=== PATIENT | male | born 1965 | race Two or more races ===

== ENCOUNTER 2018-06-19 09:55 | Inpatient (IN) | payer OTHER ==
[2018-06-19 10:17] VITALS: BMI 30.1
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
[2018-06-19] MEDS ORDERED: MAGNESIUM HYDROX 2400MG/30ML ORAL SUSPENSION 30 ML CUP PO PRN (11:52)
[2018-06-19] MEDS ORDERED: diazePAM 5 MG TABLET PO PRN (11:52)
[2018-06-19] MEDS ORDERED: P-EPHED 60MG/TRIPROLIDI 2.5MG TABLET PO PRN (11:52)
[2018-06-19] MEDS ORDERED: IBUPROFEN 400 MG TABLET (FP) PO PRN (11:52)
[2018-06-19] MEDS ORDERED: MAG HYDROX/AL HYDROX/SIMETH 30 ML UNIT-DOSE CUP PO PRN (11:52)
[2018-06-19] MEDS ORDERED: MAGNESIUM CITRATE 300 ML BOTTLE PO PRN (11:52)
[2018-06-19] MEDS ORDERED: NICOTINE POLACRILEX 2 MG GUM BUC PRN (11:52)
[2018-06-19] MEDS ORDERED: ACETAMINOPHEN 325 MG TABLET (FP) PO PRN (11:52)
[2018-06-19] MEDS ORDERED: MENTHOL/PHENOL 1 EACH UD MM PRN (11:52)
[2018-06-19] MEDS: diazePAM 5 MG TABLET PO SCH ×2 (13:22→22:24)
[2018-06-19] MEDS: THIAMINE HCL 100 MG TABLET (FP) PO SCH (22:24)
[2018-06-19] MEDS: MELATONIN 5 MG TABLETS PO PRN (22:25)
[2018-06-20] MEDS: diazePAM 5 MG TABLET PO SCH ×3 (05:55→22:12)
[2018-06-20] MEDS ORDERED: RITONAVIR 100 MG TABLET PO SCH (08:00)
[2018-06-20] MEDS ORDERED: ATAZANAVIR SO4 300 MG CAPSULE PO SCH (08:00)
[2018-06-20] MEDS: PRENATAL VITAMINS W/ FOLIC ACID TABLET (FP) PO SCH (10:10)
[2018-06-20] MEDS: BUDESONIDE/FORMETEROL FUMARATE 160/4.5 mcg INHALER IH SCH ×2 (10:11→22:25)
[2018-06-20 11:09] LABS: HEMATOCRIT 45.7 % (35.4-49); HEMOGLOBIN 14.4 GM/dL (11.7-16.9); MCH 28.9 pg (25.7-33.7); MCHC 31.5 g/dl (32.0-35.9); MEAN CELL VOLUME 91.8 fl (80-96); MEAN PLT VOLUME 7.9 fl (7.5-11.1); PLATELET COUNT 309 K/MM3 (134-434); RBC 4.98 M/mm3 (4.00-5.60); RDW 13.4 % (11.9-15.9); WHITE BLOOD COUNT 8.7 K/mm3 (4.0-10.0)
--- NOTE | 2018-06-20 11:20 | PN ---
S CIWA - CIWA Score Nausea/Vomitin-No Nausea/No Vomiting Muscle Tremors: 4-Moderate,w/Arms Extend Anxiety: 4-Mod. Anxious/Guarded Agitation: 4-Moderately Restless Paroxysmal Sweats: 1-Minimal Palms Moist Orientation: 0-Oriented Tacttile Disturbances: 0-None Auditory Disturbances: 0-None Visual Disturbances: 0-None Headache: 0-None Present CIWA-Ar Total Score: 13 BHS Progress Note (SOAP) Subjective: ANXIETY, IRRITABILITY, COUGHING, DENIES SORE THROAT INTERMITTENT SLEEP. Objective: 06/20/18 11:50 Vital Signs 06/20/18 06:16 Temperature 96.9 F L Pulse Rate 75 Respiratory 18 Rate Blood Pressure 99/59 L Laboratory Tests 06/20/18 05:35 WBC 8.7 RBC 4.98 Hgb 14.4 Hct 45.7 MCV 91.8 MCH 28.9 MCHC 31.5 L RDW 13.4 Plt Count 309 MPV 7.9 OTHER LABS PENDING Assessment: 06/20/18 11:51 WITHDRAWAL SX Plan: CONTINUE DETOX INCREASE PO FLUIDS ROBITUSSIN DM PRN DIRECTED
[2018-06-20 11:54] LABS: ALBUMIN 3.5 g/dl (3.4-5.0); ALK PHOS 80 U/L (45-117); ANION GAP 9 MMOL/L (8-16); BILIRUBIN,TOTAL 0.4 mg/dL (0.2-1); BLOOD UREA NITROGEN 9 mg/dL (7-18); CHLORIDE 104 mmol/L (98-107); CO2 27 mmol/L (21-32); CREATININE 1.1 mg/dL (0.55-1.3); GLUCOSE,RANDOM 76 mg/dL (74-106); POTASSIUM 3.8 mmol/L (3.5-5.1); SGOT/AST 34 U/L (15-37); SGPT/ALT 46 U/L (13-61); SODIUM 140 mmol/L (136-145); TOT PROT 7.5 g/dl (6.4-8.2)
[2018-06-20] MEDS ORDERED: FLU VACCINE QUAD 60 MCG/0.5 ML (MDV 18-19) IM ONE (12:00)
[2018-06-20] MEDS ORDERED: PNEUMOC 13-VAL CONJ-DIP CRM/PF 0.5 ML DISP.SYRIN IM ONE (12:00)
[2018-06-20] MEDS: MELATONIN 5 MG TABLETS PO PRN (22:12)
[2018-06-20] MEDS: THIAMINE HCL 100 MG TABLET (FP) PO SCH (22:12)
[2018-06-21] MEDS: guaiFENesin/D-METHORPHAN HB 10 ML UNIT-DOSE CUPS PO PRN ×3 (09:45→22:24)
[2018-06-21] MEDS: PRENATAL VITAMINS W/ FOLIC ACID TABLET (FP) PO SCH (10:11)
[2018-06-21] MEDS: diazePAM 5 MG TABLET PO SCH ×2 (10:11→22:22)
[2018-06-21] MEDS: BUDESONIDE/FORMETEROL FUMARATE 160/4.5 mcg INHALER IH SCH (10:11)
[2018-06-21] MEDS ORDERED: ALBUTEROL SO4 8 GM HFA INHALER IH PRN (14:50)
[2018-06-21] MEDS ORDERED: ALBUTEROL SO4 0.083% IH SOL 2.5 MG/3 ML VIAL.NEB. NEB PRN (14:53)
--- NOTE | 2018-06-21 15:00 | PN ---
[facility] CIWA - CIWA Score Nausea/Vomitin Muscle Tremors: 3 Anxiety: 3 Agitation: 3 Paroxysmal Sweats: 3 Orientation: 0-Oriented Tacttile Disturbances: 0-None Auditory Disturbances: 0-None Visual Disturbances: 0-None Headache: 0-None Present CIWA-Ar Total Score: 14 BHS Progress Note (SOAP) Subjective: Anxious, restless, interrupted sleep. As per patient, he brought his antiretroviral medications (ritonavir and reyataz) here with him to detox and did not receive any for two days and would like to resume taking his medication. Objective: 06/21/18 14:55 Last Vital Signs Temp Pulse Resp BP Pulse Ox 97.8 F 72 16 99/61 06/20/18 21:01 06/21/18 06:59 06/21/18 06:59 06/21/18 06:59 Laboratory Tests 06/20/18 06/20/18 06/20/18 05:35 05:35 05:35 WBC 8.7 RBC 4.98 Hgb 14.4 Hct 45.7 MCV 91.8 MCH 28.9 MCHC 31.5 L RDW 13.4 Plt Count 309 MPV 7.9 Sodium 140 Potassium 3.8 Chloride 104 Carbon Dioxide 27 Anion Gap 9 BUN 9 Creatinine 1.1 Creat Clearance w eGFR > 60 Random Glucose 76 Calcium 9.0 Total Bilirubin 0.4 AST 34 ALT 46 Alkaline Phosphatase 80 Total Protein 7.5 Albumin 3.5 RPR Titer Nonreactive Labs reviewed Assessment: 06/21/18 14:55 Withdrawal symptoms Plan: Continue detox Encouraged PO water intake Ritonavir 100mg PO daily and atazanavir (reyataz) 300mg PO daily resumed ( budesonide/formeterol inhaler d/c due to reaction with antiretroviral, ordered for albuterol mdi and nebulizer prn)
[2018-06-21] MEDS: ATAZANAVIR SO4 300 MG CAPSULE PO SCH (18:20)
[2018-06-21] MEDS: RITONAVIR 100 MG TABLET PO SCH (18:22)
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
[2018-06-21] MEDS: THIAMINE HCL 100 MG TABLET (FP) PO SCH (22:22)
[2018-06-22] MEDS: guaiFENesin/D-METHORPHAN HB 10 ML UNIT-DOSE CUPS PO PRN (05:30)
[2018-06-22] MEDS: diazePAM 5 MG TABLET PO SCH ×2 (10:36→22:16)
[2018-06-22] MEDS: RITONAVIR 100 MG TABLET PO SCH (10:36)
[2018-06-22] MEDS: ATAZANAVIR SO4 300 MG CAPSULE PO SCH (10:36)
[2018-06-22] MEDS: PRENATAL VITAMINS W/ FOLIC ACID TABLET (FP) PO SCH (10:36)
[2018-06-22] MEDS ORDERED: EMTRICITABINE 200MG/TENOFOVIR 300MG PO ONE (11:30)
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
[2018-06-22] MEDS: THIAMINE HCL 100 MG TABLET (FP) PO SCH (22:15)
[2018-06-23] MEDS ORDERED: EMTRICITABINE 200MG/TENOFOVIR 300MG PO SCH (08:00)
--- NOTE | 2018-06-23 08:44 | DS ---
[facility] Detox Discharge Summary Admission Date: 06/19/18 Discharge Date: 06/23/18 - History Present History: Alcohol Dependence, Sedative Dependence - Physical Exam Results Vital Signs: Vital Signs Temperature 98.0 F 06/23/18 06:22 Pulse Rate 99 H 06/23/18 06:22 Respiratory Rate 18 06/23/18 06:30 Blood Pressure 116/73 06/23/18 06:22 O2 Sat by Pulse Oximetry (%) Pertinent Admission Physical Exam Findings: benzo withdrawal sx Laboratory Last Values WBC 8.7 K/mm3 (4.0-10.0) 06/20/18 05:35 RBC 4.98 M/mm3 (4.00-5.60) 06/20/18 05:35 Hgb 14.4 GM/dL (11.7-16.9) 06/20/18 05:35 Hct 45.7 % (35.4-49) 06/20/18 05:35 MCV 91.8 fl (80-96) 06/20/18 05:35 MCH 28.9 pg (25.7-33.7) 06/20/18 05:35 MCHC 31.5 g/dl (32.0-35.9) L 06/20/18 05:35 RDW 13.4 % (11.9-15.9) 06/20/18 05:35 Plt Count 309 K/MM3 (134-434) 06/20/18 05:35 MPV 7.9 fl (7.5-11.1) 06/20/18 05:35 Sodium 140 mmol/L (136-145) 06/20/18 05:35 Potassium 3.8 mmol/L (3.5-5.1) 06/20/18 05:35 Chloride 104 mmol/L (98-107) 06/20/18 05:35 Carbon Dioxide 27 mmol/L (21-32) 06/20/18 05:35 Anion Gap 9 MMOL/L (8-16) 06/20/18 05:35 BUN 9 mg/dL (7-18) 06/20/18 05:35 Creatinine 1.1 mg/dL (0.55-1.3) 06/20/18 05:35 Creat Clearance w eGFR > 60 (>60) 06/20/18 05:35 Random Glucose 76 mg/dL (74-106) 06/20/18 05:35 Calcium 9.0 mg/dL (8.5-10.1) 06/20/18 05:35 Total Bilirubin 0.4 mg/dL (0.2-1) 06/20/18 05:35 AST 34 U/L (15-37) 06/20/18 05:35 ALT 46 U/L (13-61) 06/20/18 05:35 Alkaline Phosphatase 80 U/L (45-117) 06/20/18 05:35 Total Protein 7.5 g/dl (6.4-8.2) 06/20/18 05:35 Albumin 3.5 g/dl (3.4-5.0) 06/20/18 05:35 RPR Titer Nonreactive (NONREACTIVE) 06/20/18 05:35 lab noted - Treatment Hospital Course: Detox Protocol Followed, Detoxed Safely, Responded well, Discharged Condition Good, Rehab Referral Accepted Patient has Accepted [facility] - Medication Discharge Medications: Ambulatory Orders Atazanavir [Reyataz -] 300 mg PO DAILY@0800 06/19/18 Ritonavir 100 mg PO DAILY 06/19/18 Albuterol Sulfate Inhaler - [Ventolin HFA Inhaler -] 2 puff IH Q4H PRN #1 inhaler 06/22/18 Budesonide/Formeterol Fumarate [SYMBICORT 160/4.5mcg -] 1 puff PO DAILY #1 inhaler 06/22/18 Emtricitabine/Tenofovir [Truvada -] 1 tab PO DAILY 06/22/18 - Diagnosis (1) Alcohol dependence with uncomplicated withdrawal Status: Acute (2) Asthma Status: Chronic Qualifiers: Asthma severity: mild Asthma persistence: intermittent Asthma complication type: uncomplicated Qualified Code(s): J45.20 - Mild intermittent asthma, uncomplicated (3) HIV (human immunodeficiency virus infection) Status: Chronic (4) Nicotine dependence Status: Acute Qualifiers: Nicotine product type: cigarettes Substance use status: in withdrawal Qualified Code(s): F17.213 - Nicotine dependence, cigarettes, with withdrawal - AMA Did Patient Leave Against Medical Advice: No
[2018-06-23] MEDS: ATAZANAVIR SO4 300 MG CAPSULE PO SCH (08:54)
[2018-06-23] MEDS: RITONAVIR 100 MG TABLET PO SCH (08:54)
[2018-06-23 09:35] VITALS: BP 129/76; PULSE 96; TEMP 96.5
[2018-06-23] MEDS ORDERED: diazePAM 5 MG TABLET PO SCH (10:00)
[2018-06-23] MEDS: guaiFENesin/D-METHORPHAN HB 10 ML UNIT-DOSE CUPS PO PRN (10:17)
[2018-06-23] MEDS: PRENATAL VITAMINS W/ FOLIC ACID TABLET (FP) PO SCH (10:17)
== END 2018-06-23 12:42 | disposition other institution (70) | DRG 774 ==
LOC: YASAS 09:55 → Y3N 12:10
PROC: HZ2ZZZZ Detoxification Services for Substance Abuse Treatment (ICD-10-PCS; principal; 2018-06-19)
DX: F10.230 Alcohol dependence with withdrawal, uncomplicated (principal); F13.230 Sedative, hypnotic or anxiolytic dependence with withdrawal, uncomplicated; F14.20 Cocaine dependence, uncomplicated; F17.210 Nicotine dependence, cigarettes, uncomplicated; F31.9 Bipolar disorder, unspecified; Z21 Asymptomatic human immunodeficiency virus [HIV] infection status; J45.20 Mild intermittent asthma, uncomplicated; Z97.0 Presence of artificial eye
CPT/HCPCS: 36415; 80053; 85027; 86593

== ENCOUNTER 2018-06-23 12:33 | Inpatient (IN) | payer OTHER ==
--- NOTE | 2018-06-23 12:49 | HP ---
[facility] EMERSON Rehab Assess/Revision - Admission History Admitted to Rehab from: [facility] Date of Admission to Rehab: 06/23/18 - Findings Detox History & Physical reviewed: Yes Concur with findings: Yes Comments/Additional Findings: transferred from detox to rehab admission as per protocol Inpatient Rehab Admission - Initial Determination Are CD services needed?: Yes Free of communicable disease: Yes Not in need of hospitalization: Yes - Rehab Admission Criteria Previous failed treatment: Yes Poor recovery environment: Yes Comorbidities: Yes Lacks judgement: No Patient is meeting Inpatient Rehab admission criteria:: Yes
[2018-06-23] MEDS ORDERED: P-EPHED 60MG/TRIPROLIDI 2.5MG TABLET PO PRN (12:50)
[2018-06-23] MEDS ORDERED: MENTHOL/PHENOL 1 EACH UD MM PRN (12:50)
[2018-06-23] MEDS ORDERED: MAGNESIUM CITRATE 300 ML BOTTLE PO PRN (12:50)
[2018-06-23] MEDS ORDERED: IBUPROFEN 400 MG TABLET (FP) PO PRN (12:50)
[2018-06-23] MEDS ORDERED: ALBUTEROL SO4 8 GM HFA INHALER IH PRN (12:50)
[2018-06-23] MEDS ORDERED: ACETAMINOPHEN 325 MG TABLET (FP) PO PRN (12:50)
[2018-06-23] MEDS ORDERED: NICOTINE POLACRILEX 2 MG GUM BUC PRN (12:50)
[2018-06-23] MEDS ORDERED: MAGNESIUM HYDROX 2400MG/30ML ORAL SUSPENSION 30 ML CUP PO PRN (12:50)
[2018-06-23] MEDS ORDERED: LOPERAMIDE HCL 2 MG CAPSULE PO PRN (12:50)
[2018-06-23] MEDS ORDERED: MAG HYDROX/AL HYDROX/SIMETH 30 ML UNIT-DOSE CUP PO PRN (12:50)
[2018-06-23] MEDS ORDERED: NICOTINE 14 MG/24 HOURS TOPICAL PATCH TD PRN (15:40)
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
[2018-06-23] MEDS ORDERED: MELATONIN 5 MG TABLETS PO PRN (22:00)
[2018-06-23] MEDS: QUEtiapine FUMARATE 50 MG TABLET PO SCH (22:07)
[2018-06-23] MEDS: THIAMINE HCL 100 MG TABLET (FP) PO SCH (22:08)
[2018-06-24] MEDS: ATAZANAVIR SO4 300 MG CAPSULE PO SCH (07:26)
[2018-06-24] MEDS: RITONAVIR 100 MG TABLET PO SCH (07:26)
[2018-06-24] MEDS: EMTRICITABINE 200MG/TENOFOVIR 300MG PO SCH (07:26)
[2018-06-24] MEDS: PRENATAL VITAMINS W/ FOLIC ACID TABLET (FP) PO SCH (11:02)
[2018-06-24] MEDS: guaiFENesin/D-METHORPHAN HB 10 ML UNIT-DOSE CUPS PO PRN ×2 (11:02→22:05)
[2018-06-24] MEDS: BUDESONIDE/FORMETEROL FUMARATE 160/4.5 mcg INHALER IH SCH (11:02)
[2018-06-24] MEDS: THIAMINE HCL 100 MG TABLET (FP) PO SCH (22:04)
[2018-06-24] MEDS: QUEtiapine FUMARATE 50 MG TABLET PO SCH (22:04)
[2018-06-25] MEDS: ATAZANAVIR SO4 300 MG CAPSULE PO SCH (07:26)
[2018-06-25] MEDS: EMTRICITABINE 200MG/TENOFOVIR 300MG PO SCH (07:27)
[2018-06-25] MEDS: RITONAVIR 100 MG TABLET PO SCH (07:27)
[2018-06-25] MEDS: PRENATAL VITAMINS W/ FOLIC ACID TABLET (FP) PO SCH (10:50)
[2018-06-25] MEDS: BUDESONIDE/FORMETEROL FUMARATE 160/4.5 mcg INHALER IH SCH (10:50)
[2018-06-25] MEDS ORDERED: QUEtiapine FUMARATE 25 MG TABLET (FP) ONE (19:44)
[2018-06-25] MEDS: THIAMINE HCL 100 MG TABLET (FP) PO SCH (22:19)
[2018-06-25] MEDS: QUEtiapine FUMARATE 50 MG TABLET PO SCH (22:19)
[2018-06-25] MEDS: guaiFENesin/D-METHORPHAN HB 10 ML UNIT-DOSE CUPS PO PRN (22:20)
[2018-06-26] MEDS: EMTRICITABINE 200MG/TENOFOVIR 300MG PO SCH (07:57)
[2018-06-26] MEDS: ATAZANAVIR SO4 300 MG CAPSULE PO SCH (07:57)
[2018-06-26] MEDS: RITONAVIR 100 MG TABLET PO SCH (07:57)
[2018-06-26] MEDS: PRENATAL VITAMINS W/ FOLIC ACID TABLET (FP) PO SCH (11:21)
[2018-06-26] MEDS: BUDESONIDE/FORMETEROL FUMARATE 160/4.5 mcg INHALER IH SCH (11:26)
[2018-06-26] MEDS: guaiFENesin/D-METHORPHAN HB 10 ML UNIT-DOSE CUPS PO PRN (11:26)
[2018-06-26] MEDS: THIAMINE HCL 100 MG TABLET (FP) PO SCH (22:03)
[2018-06-26] MEDS: QUEtiapine FUMARATE 50 MG TABLET PO SCH (22:04)
[2018-06-27] MEDS: guaiFENesin/D-METHORPHAN HB 10 ML UNIT-DOSE CUPS PO PRN ×2 (06:46→22:16)
[2018-06-27] MEDS: RITONAVIR 100 MG TABLET PO SCH (07:16)
[2018-06-27] MEDS: ATAZANAVIR SO4 300 MG CAPSULE PO SCH (07:16)
[2018-06-27] MEDS: EMTRICITABINE 200MG/TENOFOVIR 300MG PO SCH (07:16)
[2018-06-27] MEDS: PRENATAL VITAMINS W/ FOLIC ACID TABLET (FP) PO SCH (10:57)
[2018-06-27] MEDS: BUDESONIDE/FORMETEROL FUMARATE 160/4.5 mcg INHALER IH SCH (10:58)
[2018-06-27] MEDS: THIAMINE HCL 100 MG TABLET (FP) PO SCH (22:16)
[2018-06-27] MEDS: QUEtiapine FUMARATE 50 MG TABLET PO SCH (22:16)
[2018-06-28] MEDS: RITONAVIR 100 MG TABLET PO SCH (07:44)
[2018-06-28] MEDS: ATAZANAVIR SO4 300 MG CAPSULE PO SCH (07:44)
[2018-06-28] MEDS: EMTRICITABINE 200MG/TENOFOVIR 300MG PO SCH (07:44)
[2018-06-28] MEDS: PRENATAL VITAMINS W/ FOLIC ACID TABLET (FP) PO SCH (10:32)
[2018-06-28] MEDS: BUDESONIDE/FORMETEROL FUMARATE 160/4.5 mcg INHALER IH SCH (10:33)
[2018-06-28] MEDS: THIAMINE HCL 100 MG TABLET (FP) PO SCH (22:07)
[2018-06-28] MEDS: guaiFENesin/D-METHORPHAN HB 10 ML UNIT-DOSE CUPS PO PRN (22:08)
[2018-06-28] MEDS: QUEtiapine FUMARATE 50 MG TABLET PO SCH (22:08)
[2018-06-29] MEDS: guaiFENesin/D-METHORPHAN HB 10 ML UNIT-DOSE CUPS PO PRN ×2 (06:22→21:56)
[2018-06-29] MEDS: ATAZANAVIR SO4 300 MG CAPSULE PO SCH (07:15)
[2018-06-29] MEDS: RITONAVIR 100 MG TABLET PO SCH (07:16)
[2018-06-29] MEDS: EMTRICITABINE 200MG/TENOFOVIR 300MG PO SCH (07:16)
[2018-06-29] MEDS: PRENATAL VITAMINS W/ FOLIC ACID TABLET (FP) PO SCH (10:52)
[2018-06-29] MEDS: BUDESONIDE/FORMETEROL FUMARATE 160/4.5 mcg INHALER IH SCH (10:52)
[2018-06-29] MEDS: THIAMINE HCL 100 MG TABLET (FP) PO SCH (21:56)
[2018-06-29] MEDS: QUEtiapine FUMARATE 50 MG TABLET PO SCH (21:56)
[2018-06-30] MEDS: ATAZANAVIR SO4 300 MG CAPSULE PO SCH (07:26)
[2018-06-30] MEDS: EMTRICITABINE 200MG/TENOFOVIR 300MG PO SCH (07:27)
[2018-06-30] MEDS: RITONAVIR 100 MG TABLET PO SCH (07:28)
[2018-06-30] MEDS: PRENATAL VITAMINS W/ FOLIC ACID TABLET (FP) PO SCH (10:48)
[2018-06-30] MEDS: BUDESONIDE/FORMETEROL FUMARATE 160/4.5 mcg INHALER IH SCH (10:48)
[2018-06-30] MEDS: guaiFENesin/D-METHORPHAN HB 10 ML UNIT-DOSE CUPS PO PRN (10:50)
[2018-06-30] MEDS: THIAMINE HCL 100 MG TABLET (FP) PO SCH (22:12)
[2018-06-30] MEDS: QUEtiapine FUMARATE 50 MG TABLET PO SCH (22:12)
[2018-07-01] MEDS: RITONAVIR 100 MG TABLET PO SCH (08:49)
[2018-07-01] MEDS: ATAZANAVIR SO4 300 MG CAPSULE PO SCH (08:49)
[2018-07-01] MEDS: EMTRICITABINE 200MG/TENOFOVIR 300MG PO SCH (08:49)
[2018-07-01] MEDS: guaiFENesin/D-METHORPHAN HB 10 ML UNIT-DOSE CUPS PO PRN (08:51)
[2018-07-01] MEDS: PRENATAL VITAMINS W/ FOLIC ACID TABLET (FP) PO SCH (11:05)
[2018-07-01] MEDS: BUDESONIDE/FORMETEROL FUMARATE 160/4.5 mcg INHALER IH SCH (11:05)
[2018-07-01] MEDS ORDERED: QUEtiapine FUMARATE 25 MG TABLET (FP) ONE (20:24)
[2018-07-01] MEDS: THIAMINE HCL 100 MG TABLET (FP) PO SCH (21:52)
[2018-07-01] MEDS: QUEtiapine FUMARATE 50 MG TABLET PO SCH (21:53)
[2018-07-02] MEDS: RITONAVIR 100 MG TABLET PO SCH (07:00)
[2018-07-02] MEDS: ATAZANAVIR SO4 300 MG CAPSULE PO SCH (07:00)
[2018-07-02] MEDS: EMTRICITABINE 200MG/TENOFOVIR 300MG PO SCH (07:00)
[2018-07-02] MEDS: PRENATAL VITAMINS W/ FOLIC ACID TABLET (FP) PO SCH (10:53)
[2018-07-02] MEDS: BUDESONIDE/FORMETEROL FUMARATE 160/4.5 mcg INHALER IH SCH (10:53)
[2018-07-02] MEDS: QUEtiapine FUMARATE 50 MG TABLET PO SCH (22:06)
[2018-07-02] MEDS: guaiFENesin/D-METHORPHAN HB 10 ML UNIT-DOSE CUPS PO PRN (22:06)
[2018-07-02] MEDS: THIAMINE HCL 100 MG TABLET (FP) PO SCH (22:06)
[2018-07-03] MEDS: RITONAVIR 100 MG TABLET PO SCH (10:48)
[2018-07-03] MEDS: ATAZANAVIR SO4 300 MG CAPSULE PO SCH (10:48)
[2018-07-03] MEDS: PRENATAL VITAMINS W/ FOLIC ACID TABLET (FP) PO SCH (10:49)
[2018-07-03] MEDS: EMTRICITABINE 200MG/TENOFOVIR 300MG PO SCH (10:49)
[2018-07-03] MEDS: BUDESONIDE/FORMETEROL FUMARATE 160/4.5 mcg INHALER IH SCH (10:50)
[2018-07-03] MEDS: QUEtiapine FUMARATE 50 MG TABLET PO SCH (21:53)
[2018-07-03] MEDS: THIAMINE HCL 100 MG TABLET (FP) PO SCH (21:53)
[2018-07-03] MEDS: guaiFENesin/D-METHORPHAN HB 10 ML UNIT-DOSE CUPS PO PRN (21:54)
[2018-07-04] MEDS: EMTRICITABINE 200MG/TENOFOVIR 300MG PO SCH (07:09)
[2018-07-04] MEDS: ATAZANAVIR SO4 300 MG CAPSULE PO SCH (07:09)
[2018-07-04] MEDS: RITONAVIR 100 MG TABLET PO SCH (07:11)
[2018-07-04] MEDS: PRENATAL VITAMINS W/ FOLIC ACID TABLET (FP) PO SCH (10:23)
[2018-07-04] MEDS: BUDESONIDE/FORMETEROL FUMARATE 160/4.5 mcg INHALER IH SCH (10:23)
[2018-07-04] MEDS: THIAMINE HCL 100 MG TABLET (FP) PO SCH (21:42)
[2018-07-04] MEDS: QUEtiapine FUMARATE 50 MG TABLET PO SCH (21:42)
[2018-07-05] MEDS: ATAZANAVIR SO4 300 MG CAPSULE PO SCH (08:04)
[2018-07-05] MEDS: RITONAVIR 100 MG TABLET PO SCH (08:04)
[2018-07-05] MEDS: EMTRICITABINE 200MG/TENOFOVIR 300MG PO SCH (08:04)
[2018-07-05] MEDS: BUDESONIDE/FORMETEROL FUMARATE 160/4.5 mcg INHALER IH SCH (10:21)
[2018-07-05] MEDS: PRENATAL VITAMINS W/ FOLIC ACID TABLET (FP) PO SCH (10:22)
[2018-07-05] MEDS: guaiFENesin/D-METHORPHAN HB 10 ML UNIT-DOSE CUPS PO PRN ×2 (10:25→21:36)
[2018-07-05] MEDS: QUEtiapine FUMARATE 50 MG TABLET PO SCH (21:36)
[2018-07-05] MEDS: THIAMINE HCL 100 MG TABLET (FP) PO SCH (21:36)
--- NOTE | 2018-07-06 06:56 | PN ---
Psychiatric Progress Note Vital Signs: Vital Signs Period Temp Pulse Resp BP Sys/[place] Pulse Ox Last 24 Hr 97.9 F 82 18-18 130/72 Date of Session: 07/06/18 Chief Complaint:: Discharge Note HPI: Patient addressing Alcohol and Cocaine Dependence comorbid with Nicotine Dependence, Substance-Induced Mood Disorder and Substance-Induced Sleep Disorder ROS: Asthma, HTN, HV+, Ptosis left eyelid, Prosthesis left eye Current Medications: Active Medications Generic Name Dose Route Start Last Admin Trade Name Freq PRN Reason Stop Dose Admin Acetaminophen 650 mg 06/23/18 12:50 Tylenol - PO Q4H PRN FEVER Al Hydroxide/Mg Hydroxide 30 ml 06/23/18 12:50 Mylanta Oral Suspension - PO Q6H PRN DYSPEPSIA Albuterol Sulfate 2 puff 06/23/18 12:50 Ventolin Hfa Inhaler - IH Q4H PRN SHORT OF BREATH/WHEEZING Atazanavir 300 mg 06/24/18 08:00 07/05/18 08:04 Reyataz - PO 300 mg DAILY@0800 KATRIN Administration Budesonide/Formoterol Fumarate 1 puff 06/24/18 10:00 07/05/18 10:21 Symbicort 160/4.5mcg - IH 1 puff DAILY KATRIN Administration Emtricitabine/Tenofovir 1 tab 06/24/18 08:00 07/05/18 08:04 Truvada PO 1 tab DAILY@0800 KATRIN Administration Eucalyptus/Menthol/Phenol/Sorbitol 1 each 06/23/18 12:50 06/25/18 22:20 Cepastat Lozenge - MM 1 each Q4H PRN Administration SORE THROAT Guaifenesin 10 ml 06/23/18 12:50 07/05/18 21:36 Robitussin Dm - PO 10 ml Q6H PRN Administration COUGH Ibuprofen 400 mg 06/23/18 12:50 Motrin - PO Q6H PRN Pain Level 4-6 Loperamide HCl 4 mg 06/23/18 12:50 Imodium - PO Q6H PRN DIARRHEA Magnesium Citrate 300 ml 06/23/18 12:50 Citroma - PO Q48H PRN CONSTIPATION Magnesium Hydroxide 30 ml 06/23/18 12:50 Milk Of Magnesia - PO DAILY PRN CONSTIPATION Melatonin 5 mg 06/23/18 22:00 06/23/18 22:08 Melatonin PO 5 mg HS PRN Administration INSOMNIA Nicotine 14 mg 06/23/18 15:40 Nicoderm Patch - TD DAILY PRN WITHDRAWAL(CONT SUBST) Nicotine Polacrilex 2 mg 06/23/18 12:50 Nicorette Gum - BUC Q2H PRN NICOTINE REPLACEMENT RX Multivit/Folic Acid/Iron 1 tab 06/24/18 10:00 07/05/18 10:22 Vitamins (Sjr) - PO 1 tab DAILY KATRIN Administration Pseudoephedrine/Triprolidine 1 combo 06/23/18 12:50 Actifed - PO TID PRN NASAL CONGESTION Quetiapine Fumarate 50 mg 06/23/18 22:00 07/05/18 21:36 Seroquel - PO 50 mg HS KATRIN Administration Ritonavir 100 mg 06/24/18 08:00 07/05/18 08:04 Norvir - PO 100 mg DAILY@0800 KATRIN Administration Thiamine HCl 100 mg 06/23/18 22:00 07/05/18 21:36 Vitamin B1 - PO 100 mg HS KATRIN Administration Current Side Effect: No Lab tests ordered: Yes Lab tests reviewed: Yes Provider note:: Patient has completed this program today. He has met his treatment goals and will continue to address his issues in assisted residential treatment at [facility] at [address] [place] [address]. Told communications writer that from his participation in this program, he has learned the importance of making meetings and get a sponsor. He responded well to Seroquel 50 mg po HS. Script for 30 days supply of that medication is electronically transmitted to [facility] at [address] [place] [address]. He is stable for discharge today Total face to face time:: 35 Mental Status Exam - Mental Status Exam Alert and Oriented to: Time, Place, Person Cognitive Function: Fair Patient Appearance: Well Groomed Mood: Hopeful, Euthymic Affect: Appropriate Patient Behavior: Cooperative Speech Pattern: Clear Thought Process: Intact, Goal Oriented Hallucinations: Denies Suicidal Ideation: Denies Homicidal Ideation: Denies Insight/Judgement: Fair Sleep: Fair Appetite: Good Muscle strength/Tone: Normal Gait/Station: Normal Psychiatric Treatment Plan - Problem List (1) Alcohol dependence Current Visit: Yes (2) Cocaine dependence Current Visit: Yes Qualifiers: Substance use status: uncomplicated Qualified Code(s): F14.20 - Cocaine dependence, uncomplicated (3) Nicotine dependence Current Visit: Yes Qualifiers: Nicotine product type: cigarettes Substance use status: in withdrawal Qualified Code(s): F17.213 - Nicotine dependence, cigarettes, with withdrawal (4) Substance induced mood disorder Current Visit: Yes (5) Substance-induced sleep disorder Current Visit: Yes (6) Asthma Current Visit: No Qualifiers: Asthma severity: mild Asthma persistence: intermittent Asthma complication type: uncomplicated Qualified Code(s): J45.20 - Mild intermittent asthma, uncomplicated (7) Eye globe prosthesis Current Visit: No (8) HIV (human immunodeficiency virus infection) Current Visit: No (9) HTN (hypertension) Current Visit: Yes Initial treatment plan: Patient is discharged today and referred to [facility] for termite control service representative residential treatment
[2018-07-06 07:19] VITALS: BP 126/67; PULSE 89; TEMP 98
[2018-07-06] MEDS: RITONAVIR 100 MG TABLET PO SCH (07:24)
[2018-07-06] MEDS: EMTRICITABINE 200MG/TENOFOVIR 300MG PO SCH (07:24)
[2018-07-06] MEDS: ATAZANAVIR SO4 300 MG CAPSULE PO SCH (07:24)
--- NOTE | 2018-07-06 10:27 | PN ---
[facility] Progress Note Note: PT COMPLETED REHAB. PT REFERRED TO [facility] FOR AFTERCARE. PT REPORTS HE HAS A PCP, DR ORI ZAYAS AT [facility] ON [address] [place] [address]. ALERT O X 3. Vital Signs 07/06/18 07/06/18 03:30 07:18 Temperature 98.0 F Pulse Rate 89 Respiratory 18 18 Rate Blood Pressure 126/67 NAD PLAN:FOLLOW UP WITH PMD ABOVE FOR MEDICAL MANAGEMENT IN 1-2 WEEKS AFTER DISCHARGE. FOLLOW UP AT [facility] FOR TREATMENT RECOMMENDATION SCHEDULED. COURTESY RX FOR ANTIRETROVIRALS REYATAZ 300 MG PO DAILY #30, TRUVADA 1 TAB PO DAILY #30 AND NORVIR 100 MG PO DAILY #30 ELECTRONICALLY SENT TO PT'S HOME PHARMACY FOR SALES AGENT PROTECTIVE SERVICE.
[2018-07-06] MEDS: BUDESONIDE/FORMETEROL FUMARATE 160/4.5 mcg INHALER IH SCH (10:44)
[2018-07-06] MEDS: PRENATAL VITAMINS W/ FOLIC ACID TABLET (FP) PO SCH (10:44)
== END 2018-07-06 10:35 | disposition home or self-care (01) | DRG 772 ==
LOC: YASAS 12:33 → Y5N 12:34
PROVIDERS: ADMIT Psychiatry & Neurology Psychiatry; ATTEND Psychiatry & Neurology Psychiatry
PROC: HZ42ZZZ Group Counseling for Substance Abuse Treatment, Cognitive-Behavioral (ICD-10-PCS; principal; 2018-06-23)
DX: F10.20 Alcohol dependence, uncomplicated (principal); F14.20 Cocaine dependence, uncomplicated; F17.213 Nicotine dependence, cigarettes, with withdrawal; F19.24 Other psychoactive substance dependence with psychoactive substance-induced mood disorder; F19.282 Other psychoactive substance dependence with psychoactive substance-induced sleep disorder; I10 Essential (primary) hypertension; J45.20 Mild intermittent asthma, uncomplicated; Z21 Asymptomatic human immunodeficiency virus [HIV] infection status; G47.00 Insomnia, unspecified; Z97.0 Presence of artificial eye
CPT/HCPCS: 82962

== ENCOUNTER 2019-08-04 11:21 | Inpatient (IN) | payer OTHER ==
[2019-08-04 11:56] VITALS: BMI 30.1
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
[2019-08-04] MEDS ORDERED: METHOCARBAMOL 500 MG TABLET PO PRN (12:47)
[2019-08-04] MEDS ORDERED: BISMUTH SUBSALICYLATE 262 MG/15 ML BTL PO PRN (12:47)
[2019-08-04] MEDS ORDERED: chlordiazePOXIDE HCL 25 MG CAPSULE PO PRN (12:47)
[2019-08-04] MEDS ORDERED: MAGNESIUM CITRATE 300 ML BOTTLE PO PRN (12:47)
[2019-08-04] MEDS ORDERED: ACETAMINOPHEN 325 MG TABLET (FP) PO PRN ×2 (12:47)
[2019-08-04] MEDS ORDERED: MAG HYDROX/AL HYDROX/SIMETH 30 ML UNIT-DOSE CUP PO PRN (12:47)
[2019-08-04] MEDS ORDERED: MENTHOL/PHENOL 1 EACH UD MM PRN (12:47)
[2019-08-04] MEDS ORDERED: MAGNESIUM HYDROX 2400MG/30ML ORAL SUSPENSION 30 ML CUP PO PRN (12:47)
[2019-08-04] MEDS ORDERED: hydrOXYzine PAMOATE 25 MG CAPSULE (FP) PO PRN (12:47)
[2019-08-04] MEDS ORDERED: MELATONIN 5 MG TABLETS PO PRN (12:47)
[2019-08-04] MEDS ORDERED: ALBUTEROL SO4 HFA INHALER IH PRN (12:50)
[2019-08-04] MEDS: chlordiazePOXIDE HCL 25 MG CAPSULE PO SCH ×2 (17:16→22:00)
[2019-08-04 17:42] LABS: HEMATOCRIT 43.9 % (35.4-49); HEMOGLOBIN 14.3 GM/dL (11.7-16.9); MCH 29.7 pg (25.7-33.7); MCHC 32.5 g/dl (32.0-35.9); MEAN CELL VOLUME 91.3 fl (80-96); MEAN PLT VOLUME 7.3 fl (7.5-11.1); PLATELET COUNT 361 K/MM3 (134-434); RBC 4.81 M/mm3 (4.00-5.60); RDW 13.4 % (11.9-15.9); WHITE BLOOD COUNT 5.2 K/mm3 (4.0-10.0)
[2019-08-04 18:00] LABS: ALBUMIN 3.9 g/dl (3.4-5.0); BILIRUBIN,TOTAL 0.8 mg/dL (0.2-1); BLOOD UREA NITROGEN 17.1 mg/dL (7-18); CALCIUM 9.6 mg/dL (8.5-10.1); CREATININE 1.3 mg/dL (0.55-1.3); TOT PROT 7.8 g/dl (6.4-8.2)
[2019-08-04] MEDS: THIAMINE HCL 100 MG TABLET (FP) PO SCH (21:10)
[2019-08-04] MEDS: QUEtiapine FUMARATE 50 MG TABLET PO SCH (22:00)
[2019-08-05] MEDS: chlordiazePOXIDE HCL 25 MG CAPSULE PO SCH ×4 (06:57→23:12)
[2019-08-05] MEDS: BUDESONIDE/FORMETEROL FUMARATE 160/4.5 mcg INHALER IH SCH (10:31)
[2019-08-05] MEDS: PRENATAL VITAMINS W/ FOLIC ACID TABLET (FP) PO SCH (10:31)
[2019-08-05] MEDS: NICOTINE 14 MG/24 HOURS TOPICAL PATCH TD SCH (10:32)
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
--- NOTE | 2019-08-05 11:59 | PN ---
[facility] CIWA - CIWA Score Nausea/Vomitin-No Nausea/No Vomiting Muscle Tremors: 3 Anxiety: 2 Agitation: 3 Paroxysmal Sweats: 2 Orientation: 0-Oriented Tacttile Disturbances: 0-None Auditory Disturbances: 0-None Visual Disturbances: 0-None Headache: 0-None Present CIWA-Ar Total Score: 10 S Progress Note (SOAP) Subjective: sleepy tired sweats irritable Objective: 08/05/19 11:59 Vital Signs Temperature 96.4 F L 08/05/19 11:28 Pulse Rate 89 08/05/19 11:28 Respiratory Rate 18 08/05/19 11:28 Blood Pressure 117/77 08/05/19 11:28 O2 Sat by Pulse Oximetry (%) Laboratory Tests 08/04/19 08/04/19 08/04/19 12:40 12:40 12:40 WBC 5.2 RBC 4.81 Hgb 14.3 Hct 43.9 MCV 91.3 MCH 29.7 MCHC 32.5 RDW 13.4 Plt Count 361 MPV 7.3 L Sodium 136 Potassium 4.0 Chloride 102 Carbon Dioxide 28 Anion Gap 6 L BUN 17.1 Creatinine 1.3 Est GFR (CKD-EPI)AfAm 73.22 Est GFR (CKD-EPI)NonAf 63.18 Random Glucose 63 L Calcium 9.6 Total Bilirubin 0.8 AST 55 H ALT 53 Alkaline Phosphatase 75 Total Protein 7.8 Albumin 3.9 RPR Titer Nonreactive aaox3 ambulating no acute distress Assessment: 08/05/19 11:59 withdrawals Plan: continue detox increase fluids
[2019-08-05] MEDS: THIAMINE HCL 100 MG TABLET (FP) PO SCH (22:51)
[2019-08-05] MEDS: QUEtiapine FUMARATE 50 MG TABLET PO SCH (22:51)
[2019-08-06] MEDS: chlordiazePOXIDE HCL 25 MG CAPSULE PO SCH ×4 (06:39→22:22)
[2019-08-06] MEDS: BUDESONIDE/FORMETEROL FUMARATE 160/4.5 mcg INHALER IH SCH (10:25)
[2019-08-06] MEDS: NICOTINE 14 MG/24 HOURS TOPICAL PATCH TD SCH (10:25)
[2019-08-06] MEDS: PRENATAL VITAMINS W/ FOLIC ACID TABLET (FP) PO SCH (10:26)
--- NOTE | 2019-08-06 14:30 | PN ---
S CIWA - CIWA Score Nausea/Vomitin-No Nausea/No Vomiting Muscle Tremors: 2 Anxiety: 1-Mildly Anxious Agitation: 1-Slight > Activity Paroxysmal Sweats: 1-Minimal Palms Moist Orientation: 0-Oriented Tacttile Disturbances: 0-None Auditory Disturbances: 0-None Visual Disturbances: 0-None Headache: 0-None Present CIWA-Ar Total Score: 5 BHS Progress Note (SOAP) Subjective: tired irritable sweats I need supplement Objective: 08/06/19 14:30 Vital Signs Temperature 96.3 F L 08/06/19 14:00 Pulse Rate 83 08/06/19 14:00 Respiratory Rate 08/06/19 14:00 Blood Pressure 125/73 08/06/19 14:00 O2 Sat by Pulse Oximetry (%) Laboratory Tests 08/04/19 08/04/19 08/04/19 12:40 12:40 12:40 WBC 5.2 RBC 4.81 Hgb 14.3 Hct 43.9 MCV 91.3 MCH 29.7 MCHC 32.5 RDW 13.4 Plt Count 361 MPV 7.3 L Sodium 136 Potassium 4.0 Chloride 102 Carbon Dioxide 28 Anion Gap 6 L BUN 17.1 Creatinine 1.3 Est GFR (CKD-EPI)AfAm 73.22 Est GFR (CKD-EPI)NonAf 63.18 Random Glucose 63 L Calcium 9.6 Total Bilirubin 0.8 AST 55 H ALT 53 Alkaline Phosphatase 75 Total Protein 7.8 Albumin 3.9 RPR Titer Nonreactive aaox3 lying in bed no acute distress Assessment: 08/06/19 14:30 withdrawals Plan: continue detox ensure bid
[2019-08-06] MEDS: QUEtiapine FUMARATE 50 MG TABLET PO SCH (22:22)
[2019-08-06] MEDS: THIAMINE HCL 100 MG TABLET (FP) PO SCH (22:22)
[2019-08-07] MEDS ORDERED: chlordiazePOXIDE HCL 10 MG CAPSULE PO PRN
[2019-08-07] MEDS: chlordiazePOXIDE HCL 10 MG CAPSULE PO SCH ×4 (06:16→22:16)
[2019-08-07] MEDS: BUDESONIDE/FORMETEROL FUMARATE 160/4.5 mcg INHALER IH SCH (10:45)
[2019-08-07] MEDS: PRENATAL VITAMINS W/ FOLIC ACID TABLET (FP) PO SCH (10:45)
[2019-08-07] MEDS: NICOTINE 14 MG/24 HOURS TOPICAL PATCH TD SCH (10:46)
--- NOTE | 2019-08-07 15:41 | PN ---
S CIWA - CIWA Score Nausea/Vomitin-No Nausea/No Vomiting Muscle Tremors: None Anxiety: 3 Agitation: 0-Normal Activity Paroxysmal Sweats: 2 Orientation: 2-Disoriented Date<2 days Tacttile Disturbances: 0-None Auditory Disturbances: 2-Mild Harshness/Frighten Visual Disturbances: 2-Mild Sensitivity Headache: 0-None Present CIWA-Ar Total Score: 11 BHS Progress Note (SOAP) Subjective: Fatigue, Anxious, Sweating. Objective: PATIENT A & O X 3. IN NO ACUTE DISTRESS. 08/07/19 15:40 Vital Signs Temperature 98.0 F 08/07/19 11:47 Pulse Rate 79 08/07/19 11:47 Respiratory Rate 16 08/07/19 11:47 Blood Pressure 124/57 L 08/07/19 11:47 O2 Sat by Pulse Oximetry (%) Laboratory Tests 08/04/19 08/04/19 08/04/19 12:40 12:40 12:40 WBC 5.2 RBC 4.81 Hgb 14.3 Hct 43.9 MCV 91.3 MCH 29.7 MCHC 32.5 RDW 13.4 Plt Count 361 MPV 7.3 L Sodium 136 Potassium 4.0 Chloride 102 Carbon Dioxide 28 Anion Gap 6 L BUN 17.1 Creatinine 1.3 Est GFR (CKD-EPI)AfAm 73.22 Est GFR (CKD-EPI)NonAf 63.18 Random Glucose 63 L Calcium 9.6 Total Bilirubin 0.8 AST 55 H ALT 53 Alkaline Phosphatase 75 Total Protein 7.8 Albumin 3.9 RPR Titer Nonreactive LABS NOTED. Assessment: 08/07/19 15:41 WITHDRAWAL SYMPTOMS. ELEVATED AST LEVEL. Plan: CONTINUE DETOX. INCREASE DAILY ORAL WATER INTAKE.
[2019-08-07] MEDS: THIAMINE HCL 100 MG TABLET (FP) PO SCH (22:15)
[2019-08-07] MEDS: QUEtiapine FUMARATE 50 MG TABLET PO SCH (22:15)
[2019-08-08] MEDS: chlordiazePOXIDE HCL 10 MG CAPSULE PO SCH ×2 (06:37→17:31)
[2019-08-08] MEDS: BUDESONIDE/FORMETEROL FUMARATE 160/4.5 mcg INHALER IH SCH (09:03)
[2019-08-08] MEDS: PRENATAL VITAMINS W/ FOLIC ACID TABLET (FP) PO SCH (09:03)
[2019-08-08] MEDS: NICOTINE 14 MG/24 HOURS TOPICAL PATCH TD SCH (09:03)
--- NOTE | 2019-08-08 15:20 | PN ---
S CIWA - CIWA Score Nausea/Vomitin-No Nausea/No Vomiting Muscle Tremors: None Anxiety: 2 Agitation: 2 Paroxysmal Sweats: 2 Orientation: 0-Oriented Tacttile Disturbances: 0-None Auditory Disturbances: 0-None Visual Disturbances: 0-None Headache: 0-None Present CIWA-Ar Total Score: 6 BHS Progress Note (SOAP) Subjective: Sweating Objective: 08/08/19 15:20 Last Vital Signs Temp Pulse Resp BP Pulse Ox 98.6 F 94 H 18 124/81 08/08/19 14:32 08/08/19 14:32 08/08/19 14:32 08/08/19 14:32 Laboratory Tests 08/04/19 08/04/19 08/04/19 12:40 12:40 12:40 WBC 5.2 RBC 4.81 Hgb 14.3 Hct 43.9 MCV 91.3 MCH 29.7 MCHC 32.5 RDW 13.4 Plt Count 361 MPV 7.3 L Sodium 136 Potassium 4.0 Chloride 102 Carbon Dioxide 28 Anion Gap 6 L BUN 17.1 Creatinine 1.3 Est GFR (CKD-EPI)AfAm 73.22 Est GFR (CKD-EPI)NonAf 63.18 Random Glucose 63 L Calcium 9.6 Total Bilirubin 0.8 AST 55 H ALT 53 Alkaline Phosphatase 75 Total Protein 7.8 Albumin 3.9 RPR Titer Nonreactive Labs reviewed Assessment: 08/08/19 15:21 Withdrawal sxs Plan: Continue detox Encouraged PO water intake
[2019-08-08] MEDS: QUEtiapine FUMARATE 50 MG TABLET PO SCH (22:40)
[2019-08-08] MEDS: THIAMINE HCL 100 MG TABLET (FP) PO SCH (22:40)
[2019-08-09] MEDS ORDERED: chlordiazePOXIDE HCL 10 MG CAPSULE PO ONE (05:00)
[2019-08-09 07:17] VITALS: BP 120/67; PULSE 86; TEMP 97.2
--- NOTE | 2019-08-09 10:01 | DS ---
[facility] Detox Discharge Summary Admission Date: 08/04/19 Discharge Date: 08/09/19 - History Present History: Alcohol Dependence, Cocaine Dependence - Physical Exam Results Vital Signs: Vital Signs Temperature 97.2 F L 08/09/19 07:16 Pulse Rate 86 08/09/19 07:16 Respiratory Rate 18 08/09/19 07:16 Blood Pressure 120/67 08/09/19 07:16 O2 Sat by Pulse Oximetry (%) Pertinent Admission Physical Exam Findings: Vital Signs Temperature 97.2 F L 08/09/19 07:16 Pulse Rate 86 08/09/19 07:16 Respiratory Rate 18 08/09/19 07:16 Blood Pressure 120/67 08/09/19 07:16 O2 Sat by Pulse Oximetry (%) Laboratory Tests 08/04/19 08/04/19 08/04/19 12:40 12:40 12:40 WBC 5.2 RBC 4.81 Hgb 14.3 Hct 43.9 MCV 91.3 MCH 29.7 MCHC 32.5 RDW 13.4 Plt Count 361 MPV 7.3 L Sodium 136 Potassium 4.0 Chloride 102 Carbon Dioxide 28 Anion Gap 6 L BUN 17.1 Creatinine 1.3 Est GFR (CKD-EPI)AfAm 73.22 Est GFR (CKD-EPI)NonAf 63.18 Random Glucose 63 L Calcium 9.6 Total Bilirubin 0.8 AST 55 H ALT 53 Alkaline Phosphatase 75 Total Protein 7.8 Albumin 3.9 RPR Titer Nonreactive aaox3 ambulating no acute distress - Treatment Hospital Course: Detox Protocol Followed, Detoxed Safely, Responded well, Discharged Condition Good, Rehab Referral Accepted - Medication Discharge Medications: Ambulatory Orders Albuterol Sulfate Inhaler - [Ventolin HFA Inhaler -] 2 puff IH Q4H PRN #1 inhaler 06/22/18 Budesonide/Formeterol Fumarate [SYMBICORT 160/4.5mcg -] 1 puff PO DAILY #1 inhaler 06/22/18 Quetiapine Fumarate [Seroquel -] 50 mg PO HS #30 tablet 07/06/18 - Diagnosis (1) Alcohol dependence with uncomplicated withdrawal Current Visit: Yes Status: Chronic (2) Cocaine dependence Current Visit: Yes Status: Chronic Qualifiers: Substance use status: uncomplicated Qualified Code(s): F14.20 - Cocaine dependence, uncomplicated (3) Elevated aspartate aminotransferase level Current Visit: Yes Status: Acute (4) Substance induced mood disorder Current Visit: Yes Status: Acute (5) Asthma Current Visit: Yes Status: Chronic Qualifiers: Asthma severity: mild Asthma persistence: intermittent Asthma complication type: uncomplicated Qualified Code(s): J45.20 - Mild intermittent asthma, uncomplicated (6) Depressive disorder Current Visit: Yes Status: Chronic (7) Eye globe prosthesis Current Visit: Yes Status: Chronic (8) HIV (human immunodeficiency virus infection) Current Visit: Yes Status: Chronic (9) HTN (hypertension) Current Visit: Yes Status: Chronic (10) Insomnia Current Visit: Yes Status: Chronic (11) Nicotine dependence Current Visit: Yes Status: Chronic Qualifiers: Nicotine product type: cigarettes Substance use status: in withdrawal Qualified Code(s): F17.213 - Nicotine dependence, cigarettes, with withdrawal (12) Bipolar disorder Current Visit: Yes Status: Suspected (13) MDD (major depressive disorder) Current Visit: Yes Status: Ruled-out (14) Cannabis abuse Current Visit: No Status: Acute (15) Substance induced mood disorder Current Visit: No Status: Acute (16) Substance-induced sleep disorder Current Visit: No Status: Acute (17) Xanax use disorder, mild, abuse Current Visit: No Status: Acute (18) Alcohol dependence Current Visit: No Status: Chronic (19) Drug-induced mood disorder Current Visit: No Status: Chronic - AMA Did Patient Leave Against Medical Advice: No
== END 2019-08-09 11:25 | disposition home or self-care (01) | DRG 774 ==
LOC: YASAS 11:21 → Y6N 13:34
PROVIDERS: ADMIT Allergy & Immunology; ATTEND Allergy & Immunology
PROC: HZ2ZZZZ Detoxification Services for Substance Abuse Treatment (ICD-10-PCS; principal; 2019-08-04)
DX: F10.230 Alcohol dependence with withdrawal, uncomplicated (principal); F10.220 Alcohol dependence with intoxication, uncomplicated; F14.20 Cocaine dependence, uncomplicated; F13.10 Sedative, hypnotic or anxiolytic abuse, uncomplicated; F12.10 Cannabis abuse, uncomplicated; F17.213 Nicotine dependence, cigarettes, with withdrawal; F19.24 Other psychoactive substance dependence with psychoactive substance-induced mood disorder; F19.282 Other psychoactive substance dependence with psychoactive substance-induced sleep disorder; F31.9 Bipolar disorder, unspecified; I10 Essential (primary) hypertension; J45.20 Mild intermittent asthma, uncomplicated; Z21 Asymptomatic human immunodeficiency virus [HIV] infection status; R74.0 Nonspecific elevation of levels of transaminase and lactic acid dehydrogenase [LDH]; G47.00 Insomnia, unspecified; R00.0 Tachycardia, unspecified; Z97.0 Presence of artificial eye; Z91.013 Allergy to seafood; Z88.8 Allergy status to other drugs, medicaments and biological substances; Z88.6 Allergy status to analgesic agent
CPT/HCPCS: 36415; 80053; 85027; 86593